=== PATIENT | male | born 1995 | race Caucasian/White ===

== ENCOUNTER 2018-11-07 09:40 | Emergency (ER) | payer MEDICAID, OTHER ==
--- NOTE | 2018-11-07 10:15 | EDPHY ---
H & P Stated Complaint: Head injury saturday Source: Patient, Family (Mother) Exam Limitations: No limitations - Personal History Current Tetanus/Diphtheria Vaccine: Yes - Medical/Surgical History Hx Asthma: No Hx Chronic Respiratory Disease: No Hx Diabetes: No Hx Cardiac Disease: No Hx Renal Disease: No Hx Cirrhosis: No Hx Alcoholism: No Other PMH: denies - Social History Smoking Status: Never smoked Time Seen by Provider: 11/07/18 10:14 HPI/ROS: HPI: This is a 22-year-old male who presents with Chief Complaint: Hit head 2/5, headache, neck pain Location: Head Quality: Injury Duration: 3 days ago Signs and Symptoms: no fever, no nausea, no vomiting, no photophobia, no noise sensitivity, no neck stiffness, no ear pain, no tinnitus, no nasal congestion, no sinus pressure, no weakness, no radiation, no aura, + dizziness, + headache Timing: Acute Severity: [id number] Context: Patient was wearing a helmet on Saturday of, approximately 2 days ago when he was hit the top of the head by the chair lift. He reports that he felt immediate, moderate, constant pain but did not lose consciousness. [place]. He woke up the next day with frontal headache and discomfort on side of the neck worsens when he looked to the left. He also noted some nausea and dizziness. Today he reports that the headache has lessened but the neck discomfort continues. No prior history of concussions. Denies vomiting, amnesia. Does not have any dizziness at this time. Notes when he reads are looks in the lateral portions of his visual field his eye discomfort increases. Modifying Factors: [id number]-[id number] Tylenol with transient relief Comment: ROS: A comprehensive 10 system review of systems is otherwise negative aside from elements mentioned in the history of present illness. MEDICAL/SURGICAL/SOCIAL HISTORY: Medical history: Generally healthy. Does not take any regular medications. Surgical history: Denies Social history: Never smoked. Family history noncontributory. CONSTITUTIONAL: Well-developed well-nourished young adult white male, mother at bedside, awake and alert, no obvious distress HEENT: Atraumatic and normocephalic, PERRL, EOMI. no globe entrapment, no raccoon eyes. no Judge signs.Tympanic membranes clear. No tympanic membrane rupture. Nares patent; no septal hematoma. Oropharynx clear, no exudate and moist pink mucosa. No malocclusion. no dental trauma. Airway patent. No lymphadenopathy. NECK: supple, mild midline tenderness, flexion 45 degrees, extension 45 degrees , right and left lateral flexion 45 degrees. No meningismus. Discomfort when looking left laterally. Cardiovascular: Normal S1/S2, regular rate, regular rhythm, without murmur rub or gallop. PULMONARY/CHEST: Symmetrical and nontender. no crepitus. Clear to auscultation bilaterally. Good air movement. No accessory muscle usage. ABDOMEN: Soft, nondistended, nontender, no ecchymosis, no rebound, no guarding , no peritoneal signs, no masses or organomegaly. No CVAT. PELVIC: no pain with rocking; bilateral hips flexion 125 degrees, extension 30 degrees, with no pain internal rotation and no pain external rotation. BACK: No midline tenderness, no paraspinous spasm, deep tendon reflexes 2/2, no pain with straight leg raise EXTREMITIES: 2/2 pulses, no deformities, no clubbing, no cyanosis or edema. NEUROLOGICAL: no focal neuro deficits. GCS 15. Cranial nerves 2-12 grossly intact. Normal gskpgt-af-ecof test. Normal dlvi-fz-jtxe test. SKIN: Warm and dry, no erythema. no rash. Good capillary refill. (Bita Baron) Constitutional: Initial Vital Signs Temperature (C) 37.1 C 11/07/18 09:52 Heart Rate 91 11/07/18 09:52 Respiratory Rate 18 11/07/18 09:52 Blood Pressure 136/81 H 11/07/18 09:52 O2 Sat (%) 96 11/07/18 09:52 O2 Delivery Mode Room Air Allergies/Adverse Reactions: No Known Allergies Allergy (Unverified 11/07/18 09:55) Home Medications: Medication Instructions Recorded Ondansetron Odt [Zofran Odt 4 mg 4 mg PO Q4 PRN #12 tab 11/07/18 (*)] Medical Decision Making ED Course/Re-evaluation: Vital signs reviewed and stable upon arrival. Based on nexus protocol dangerous mechanism of injury head CT ordered Based on nexus protocol of midline tenderness cervical CT ordered Patient is exhibiting signs of a mild concussion Discussed concussion precautions and not to return to work until cleared by PCP , concussion Clinic Called by Dr. Downey that CT head shows no acute intracranial process. CT cervical spine shows no acute cervical process. No signs of neurovascular compromise/tenting of skin/compartment syndrome/ extremities and joints examined above and below area of concern and are neurovascularly intact. This patient was seen under the supervision of my secondary supervising physician. I evaluated care for this patient independently. Discussed this patient with Dr. Nicole who did not see the patient. (Bita Baron) I did not see this patient while he was in the emergency department. However his care was discussed with the PA while the patient was in the department. I agree with treatment plan and management (Dimitrios Nicole) Differential Diagnosis: Head injury including but not limited to concussion, skull fracture, intraparenchymal contusion, subarachnoid, subdural and epidural hematoma. (Bita Baron) Departure - Departure Disposition: Home, Routine, Self-Care Clinical Impression: Concussion, Cervical muscle strain Condition: Good Instructions: Cervical Strain (ED), Concussion (ED), Head Injury (ED) Additional Instructions: You sustained a closed head injury and mild concussion and it is recommended that you observe concussion precautions. Please do not participate in any contact sports or moderate and strenuous activity until all symptoms have resolved or cleared by PCP/Concussion Clinic. Take Tylenol 650 mg every 4 hours and/or Ibuprofen 600 mg every 8 hours with food as needed for pain/headache. Take Zofran 1 tab every 4-6 hours as needed for nausea, vomiting Consume a minimum of 8-10 glasses of water or electrolyte fluid replacement drinks that include Gatorade, Powerade, Pedialyte. Please follow-up with primary care provider in 5-7 days. If symptoms last longer than 1 week, please follow-up with Dr. Patel in the concussion Clinic. Return to the ER immediately if you have progressive headaches, neurologic deficits, gait abnormality, visual disturbance, slurred speech, or any other symptom that concerns you. Referrals: Claire Patel MD [Medical Doctor] - As per Instructions Stand Alone Forms: Work Excuse Prescriptions: Ondansetron Odt [Zofran Odt 4 mg (*)] 4 mg PO Q4 PRN #12 tab PRN Reason: Nausea/Vomiting, Use 1st
[2018-11-07 11:51] VITALS: BP 127/84
== END 2018-11-07 11:51 | disposition home or self-care (01) ==
DX: S06.0X0A Concussion without loss of consciousness, initial encounter (principal); S16.1XXA Strain of muscle, fascia and tendon at neck level, initial encounter; V00.322A Snow-skier colliding with stationary object, initial encounter; Y93.23 Activity, snow (alpine) (downhill) skiing, snowboarding, sledding, tobogganing and snow tubing